=== PATIENT | male | born 1965 | race Caucasian/White ===

== ENCOUNTER 2017-04-06 16:38 | Inpatient (IN) | payer OTHER ==
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
--- NOTE | ~2017-04-06 | DS ---
Unit #: [id number] #: [id number] Patient: MELLISSA SADLER [id number] [address] [place], [place] [address] [id number] I MR#: [id number] NAME: MELLISSA SADLER ROOM: 465 Age: 51 Sex: M Admission Date: 04/06/2017 : 1965 Discharge Date: 04/07/2017 Attending Physician: Tien Durham M.D. Primary Care Physician: Thompson Aviles Jr., A.P.R.N. DISCHARGE SUMMARY REASON FOR ADMISSION Acute kidney injury. HISTORY OF PRESENT ILLNESS/HOSPITAL COURSE The patient is a very pleasant 51-year-old male, who was referred by his primary care provider secondary to abnormal/elevated creatinine of approximately 2.3. Please refer to H and P for complete details. Through her hospital course, consultation was placed to Dr. White of [facility] for evaluation. Appropriate adjustments have been made. Patient has been scheduled for renal artery duplex scan as an outpatient. His lisinopril has been discontinued. He has been initiated on Norvasc 2.5 mg p.o. daily. Appropriate lab tests have already been ordered including urine eosinophils, random sodium, random protein, creatinine, HIV test, as well as, serum protein immunofixation has already been ordered as well. Numerous laboratory studies have been ordered and currently pending. Ultrasound of kidneys has also been done this morning and currently pending as well. At this point in time, patient is clinically stable for discharge. His creatinine this morning is 2.2 after receiving IV fluids overnight. Workup in regard to his chronic kidney disease will be conducted as an outpatient by Dr. White and associates. Plans have been reviewed with patient in detail. He is stable for discharge home. FINAL DISCHARGE DIAGNOSES 1. Acute kidney injury, likely chronic kidney disease stage 3/4, workup in progress. 2. Diabetes with insulin dependence. 3. Chronic pain syndrome. 4. Neuropathy, likely diabetic in origin. 5. Gastroesophageal reflux disease. DISCHARGE MEDICATIONS 1. Pepcid 40 mg p.o. nightly. 2. Oxycodone 60 mg p.o. b.i.d. Home medications: 1. Flexeril 10 mg p.o. b.i.d. p.r.n. home medication. 2. Lantus 30 units subcutaneous nightly, note new dosage. Hemoglobin A1c 8.4% this hospital admission. 3. Lyrica 150 mg p.o. q.8, again home medication. 4. Norvasc 2.5 mg p.o. daily. Unit #: [id number] #: [id number] Patient: MELLISSA SADLER DISCHARGE CONDITION Stable. DISCHARGE DISPOSITION Home. FOLLOWUP Followup Dr. White as an outpatient. Renal artery duplex scan to be set up as an outpatient. BMP in one week as well. Plans have been reviewed with patient as well as his friend who is sitting at bedside. He expresses agreement, understanding. Discharge home in stable condition. Dictated by... Tien Durham M.D. ELAINE/lazarus TD: 04/09/2017 16:25 JOB #: [id number] DISCHARGE SUMMARY Page 1 of 1 X Tien Durham MD X DISCHARGE SUMMARY
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
--- NOTE | ~2017-04-06 | EKG ---
PATIENT: MELLISSA SADLER UNIT #: [id number] Ventricular Rate: 78 BPM Atrial Rate: 78 BPM P-R Interval: 158 ms QRS Duration: 82 ms Q-T Interval: 366 ms QTC Calculation(Bezet): 417 ms P [place]: 59 degrees Calculated R [place]: 33 degrees Calculated T [place]: 40 degrees Diagnosis Line: Normal sinus rhythm Diagnosis Line: Normal ECG Diagnosis Line: When compared with ECG of 06-DEC-2016 10:22, Diagnosis Line: No significant change was found Diagnosis Line: Confirmed by KRISTI GLYNN MD ([id number]) on Diagnosis Line: 04/08/2017 10:42:56 AM INTERPRETING MD: MOSHE
--- NOTE | ~2017-04-06 | US77 ---
[facility] A Service of [facility] RADIOLOGY TEXT RESULTS PATIENT: MELLISSA SADLER LOCATION: [facility] 465 : [birth year] UNIT #: [id number] AGE: [address]: Tien Durham MD SEX: M ORDER DR: [id number] [facility] [address] [facility]. [place], [place] [address] [id number] I MR#: [id number] Acc #: [id number] NAME: MELLISSA SADLER. : 1965 SEX: M STUDY DATE/TIME: 04/07/2017 9:52 UNIT: [facility] ROOM: [facility] STUDY DESCRIPTION: US Kidney Bilateral Complete Attending Physician: Tien Durham M.D. Ordering Physician: Tyler White M.D. Primary Care Physician: Thompson Aviles Jr., A.P.R.N. MEDICAL IMAGING REPORT This report is preliminary unless electronic signature is present EXAM Bilateral renal ultrasound. HISTORY Acute renal insufficiency. FINDINGS Ultrasound examination of both kidneys demonstrates no renal mass or hydronephrosis. Moderate generalized bilateral renal parenchymal atrophy. The right kidney measures 8.1 cm in length and the left kidney measures 8.8 cm in length. IMPRESSION 1. No renal mass or hydronephrosis. 2. Moderate generalized bilateral renal parenchymal atrophy. 3. Survey of the urinary bladder is normal. Dictated by... Osvaldo Ramirez M.D. THIS IS AN ELECTRONICALLY VERIFIED REPORT Osvaldo Ramirez M.D. at 04/07/2017 10:49 PM SANCHO/stephen TD: 04/07/2017 15:50 JOB #: [id number] MEDICAL IMAGING REPORT Page 1 of 1 COPY
[~2017-04-06 16:38] MED LIST: ASPIRIN EC81 M1 PO; FLEXERIL10 MG PO; ISOSORBIDE DINI30 MG PO; LANTUS100 UNITS/ SUBQ; LIPITOR20 MG PO; LISINOPRIL20 MG PO; LYRICA PO; METOPROLOL TART25 MG PO; MORPHINE SULFAT60 M1 PO; OMEPRAZOLE20 M2 PO
[2017-04-06 17:49] LABS: BASOPHIL# 0.1 X10e3 (0-0.3); BASOPHIL% 0.6 % (0-2.5); EOSINOPHIL# 0.1 X10e3 (0-0.7); EOSINOPHIL% 1.5 % (0.0-7.0); HEMATOCRIT 34.9 % (38.0-50.0); HEMOGLOBIN 11.9 gm/dL (13.0-16.0); LYMPHOCYTE# 2.4 X10e3 (1.0-3.5); LYMPHOCYTE% 26.6 % (17.0-45.0); MEAN CELL VOLUME 85.1 FL (83-96); MEAN CORPUSCULAR HEMOGLOBIN 29.1 PG (28-34); MEAN CORPUSCULAR HGB CONC 34.2 g/dL (30-36); MEAN PLATELET VOLUME 7.8 FL (6.5-11.5); MONOCYTE# 0.4 X10e3 (0-1.0); MONOCYTE% 4.8 % (3.0-12.0); NEUTROPHIL# 5.9 X10e3 (1.5-7.1); NEUTROPHIL% 66.5 % (40-75); PLATELET COUNT 269 X10e3 (140-420); RED CELL DISTRIBUTION WIDTH 12.6 % (11.0-15.5); WHITE BLOOD COUNT 8.9 X10e3 (4.0-10.5)
[2017-04-06 17:50] LABS: DIFF IND NO
[2017-04-06 18:27] LABS: BUN/CREATININE RATIO 12.6; CALCIUM SERUM 9.3 mg/dL (8.4-10.2); CREATININE SERUM 2.3 mg/dL (0.6-1.4); GLOM FILT RATE Estimated 31.5 mL/min (>60)
[2017-04-06 18:32] LABS: POTASSIUM 5.4 mmol/L (3.5-5.1)
[2017-04-06 19:15] LABS: URINE SOURCE CLEAN CATCH
[2017-04-06] MEDS ORDERED: LYRICA PO (19:15)
[2017-04-06] MEDS ORDERED: LANTUS100 U/ML SUBQ (19:16)
[2017-04-06] MEDS ORDERED: FLEXERIL PO (19:17)
[2017-04-06] MEDS ORDERED: LISINOPRIL20 MG PO (19:17)
[2017-04-06] MEDS ORDERED: OXYCONTIN60 MG PO (19:17)
[2017-04-06 19:22] LABS: URINE APPEARANCE CLEAR; URINE BILIRUBIN NEG (NEG); URINE BLOOD NEG (NEG); URINE COLOR YELLOW; URINE GLUCOSE 250 MG/DL (NEG); URINE KETONE NEG (NEG); URINE LEUKOCYTE ESTERASE NEG (NEG); URINE NITRATE NEG (NEG); URINE PROTEIN NEG (NEG); URINE SPECIFIC GRAVITY 1.011 (1.003-1.035); URINE UROBILINOGEN 0.2 MG/DL (NEG)
[2017-04-06 19:31] LABS: CULTURE INDICATED? NO
[2017-04-06] MEDS ORDERED: PEPCID PO (23:02)
[2017-04-07 03:00] LABS: HEMATOCRIT 33.9 % (38.0-50.0); HEMOGLOBIN 11.2 gm/dL (13.0-16.0); MEAN CORPUSCULAR HEMOGLOBIN 28.5 PG (28-34); MEAN CORPUSCULAR HGB CONC 33.2 g/dL (30-36); MEAN PLATELET VOLUME 7.6 FL (6.5-11.5); RED BLOOD COUNT 3.94 X10e (3.90-5.60); WHITE BLOOD COUNT 5.8 X10e3 (4.0-10.5)
[2017-04-07 03:48] LABS: BUN/CREATININE RATIO 10.45; CREATININE SERUM 2.2 mg/dL (0.6-1.4); GLOM FILT RATE Estimated 33.2 mL/min (>60); POTASSIUM 5.4 mmol/L (3.5-5.1)
[2017-04-07] MEDS ORDERED: ACETAMINOPHEN650 M4 PO (12:01)
[2017-04-07] MEDS ORDERED: NORVASC2.5 MG PO (12:02)
[2017-04-07 14:10] LABS: CREATININE,RANDOM URINE 64 mg/dL; SODIUM URINE RANDOM 56 mmol/L; TOTAL PROTEIN,RANDOM URINE <10 mg/dl (<10)
[2017-04-10 02:37] LABS: COMPLEMENT C3 113 mg/dL (90-180); COMPLEMENT C4 27 mg/dL (16-47)
[2017-04-11 01:41] LABS: HEP C AB (HEPPAN) Nonreactive (Nonreactive); HEP C AB SIGNAL TO CUTOFF 0.03 ratio (<1.00)
== END 2017-04-07 14:32 | disposition home or self-care (01) | DRG 684 ==
LOC: CED 16:38 → CEDOF 18:54 → CED 19:44 → C4C 22:15 → CEDOF 22:15 → C4C 04-07 06:00
PROVIDERS: Emergency Medicine; Internal Medicine; Internal Medicine Nephrology
DX: N17.9 Acute kidney failure, unspecified (principal); E11.22 Type 2 diabetes mellitus with diabetic chronic kidney disease; Z86.73 Personal history of transient ischemic attack (TIA), and cerebral infarction without residual deficits; Z79.4 Long term (current) use of insulin; F17.210 Nicotine dependence, cigarettes, uncomplicated; E87.5 Hyperkalemia; G89.29 Other chronic pain; I12.9 Hypertensive chronic kidney disease with stage 1 through stage 4 chronic kidney disease, or unspecified chronic kidney disease; N18.3 Chronic kidney disease, stage 3 (moderate); M54.9 Dorsalgia, unspecified
CPT/HCPCS: 76770; 80048; 81003; 82550; 82570; 82947; 83036; 84156; 84300; 85025; 85027; 86160; 86334; 86803; 87806; 89190; 93005; 99284; J0610; J1650; J1815